=== PATIENT | female | born 1975 | race Caucasian/White ===

== ENCOUNTER 2020-10-14 03:55 | Inpatient (IN) | payer OTHER ==
[2020-10-14] MEDS ORDERED: ZIPRASIDONE MESYLATE 20 MG VIAL IM PRN (07:58)
[2020-10-14] MEDS ORDERED: cloNIDine 0.1 MG TAB PO PRN ×2 (22:37→22:50)
[2020-10-14] MEDS: METOPROLOL SUCCINATE XL 100 MG TAB PO SCH (22:58)
[2020-10-14] MEDS: NIFEdipine XL 90 MG TAB PO SCH (22:58)
[2020-10-14] MEDS: traZODone 50 MG TAB PO SCH (23:00)
--- NOTE | 2020-10-15 09:19 | History and Physical Report ---
GP History & Physical - History of Present Illness Date of admission: 10/14/20 Date of Examination: 10/15/20 Reason for Admission: Danger to others, Impaired reality testing, Failure of Outpatient Treatment History of Present Illness: Per Admission Note: pt arrived on the unit at approximately 2200 via stretcher accompanied by two EMS staff. pt is alert and orientedx4, calm and cooperative, appearance is unkempt, organized thought process, answers question appropriately, she maintained eye contact, pt reported that she had fentanyl patch which she believed triggered the abnormal behavior. pt reported she remembered walking out the house naked, but threatening her family, she could not remember. pt reported having anxiety and depression. pt denies si/hi, denies a/v/h. pt reported she had left kidney surgery(partial nephrectomy) 2 to 3 weeks ago in [place]. she also reported she has a dysfunctional gallbladder; she is scheduled for cholecystectomy in the next few weeks. pt has hx of biliary dyskinesia, chronic pain, depression with anxiety, HTN, Myocardial infarction, panic attack, renal cell carcinoma of left kidney. pt has bruises and scratches to bilateral arms, left knee abrasion, surgical scar on abdominal area. pt signs all admission paper including 1012. blood pressure elevated at 179/119 pulse 63 on left arm, 175/122, pulse 65 on right arm; order received from court monitor hospitalist DR bhatt, toprol xl 200mg po, procardial xl 90mg po and clonidine 0.1 mg po given with good affect. recheck was 146/93, pulse 66, pt denies pain. snack and fluid offered, pt orients to unit and unit guideline explained, no belonging brought in by; no distress noted, will continue to monitor for safety. Veronica Osullivan is a 45y/o female who states [facility] because she was "out of this world" The patient says she was on a fentanyl patch for cancer in her kidney and it had her out of reality. She says she was homicidal and making threats toward her family. She says I was delusional and running around naked. The patient says she has a history of depression and anxiety, and states she takes prozac and klonopin. She denies illicit drug use outside of THC, but says she's tried other drugs years ago. The patient denies hallucinations, but states she was having delusions so bad. "My mind was not right," she states. PAST PSYCHIATRIC HISTORY: Diagnoses: depression and anxiety Suicide attempts or Self-harm behavior: denies Prior psychiatric hospitalizations: yes Substance Abuse history: yes Previous psychiatric medications tried: prozac, klonopin Outpatient treatment: yes PAST MEDICAL HISTORY: HTN, CA, partial nephrectomy Family Psychiatric History: None reported or documented SOCIAL HISTORY Marital Status: common law Living Arrangements: with significant other of 21yrs Employment Status: unemployed, disabled Access to guns/weapons: denies Education: History of Abuse: denies Legal History: denies REVIEW OF SYSTEMS Constitutional: Negative for weight loss ENT: Negative for stridor Respiratory: Negative for cough or hemoptysis All other systems reviewed and are negative MENTAL STATUS EXAMINATION General Appearance and Behavior: Age appropriate, good hygiene, wearing appropriate clothes, calm and cooperative polite with questioning. Cooperation: engaged Psychomotor Behavior: Psychomotor normal Mood: "I'm okay" Affect and affective range: congruent with stated mood Thought Process: goal directed Thought Content: delusions Speech: Normal volume, Regular rate and rhythm, Suicidal Ideation: Denies Homicidal Ideation: Denies Hallucinations: Denies Delusions: None elicited Impulse Control: Unimpaired Insight and Judgment: Limited Memory: Normal Attention: attentive Orientation: a/o Diagnoses: Acute Psychosis Treatment Plan Patient admitted for inpatient psychiatric evaluation, medication adjustment and close monitoring The patient's behavior, mood, sleep and appetite will be closely monitored. Patient enrolled in individual and group therapeutic sessions and encouraged to attend. Patient provided with a safe and structured environment. Patient's physical health needs will be addressed by the Hospitalist. Hospitalist Consulted Labs including CBC, CMP, Lipid profile and Hemoglobin A1C levels ordered for baseline reference Social Assessment will be completed and the Route Specialist will work with patient and family to ensure a suitable and safe disposition Medication adjustment will be made as clinically indicated Start home medications Nicotine patch Usual Wellness Baptism/Preservation: - Start Trazodone 50 mg po QHS & 50 mg po QHS PRN between 10 PM & 2 AM for insomnia - Start Melatonin 5 mg po QHS to promote circadian rhythm The patient agreed on the treatment plan, understood the risk, benefit, a lternative treatment, potential consequence of no treatment, and gave informed consent. Initial Certification I certify that the inpatient psychiatric services are required for treatment that could reasonably be expected to improve the patient's condition. Estimated days: 3 Post hospital care: primary care provider, psychiatric provider Legal Status: Voluntary Reaction to Hospitalization: Accepting Medications and Allergies Allergies Allergy/AdvReac Type Severity Reaction Status Date / Time tramadol Allergy Unknown Verified 10/14/20 07:44 Home Medications Medication Instructions Recorded Confirmed Last Taken Type FLUoxetine HCL [Prozac] 20 mg PO DAILY 10/15/20 10/15/20 Unknown History Metoprolol Xl [Metoprolol 200 mg PO DAILY 10/15/20 10/15/20 Unknown History SUCCINATE ER TAB] Morphine [Morphine TAB] 15 mg PO Q4HR PRN 10/15/20 10/15/20 Unknown History NIFEdipine XL [Procardia Xl] 90 mg PO QDAY 10/15/20 10/15/20 Unknown History Promethazine [Phenergan] 25 mg PO Q6HR PRN 10/15/20 10/15/20 Unknown History clonazePAM [KlonoPIN] 0.5 mg PO BID PRN 10/15/20 10/15/20 Unknown History hydroCHLOROthiazide [Hctz] 12.5 mg PO QDAY 10/15/20 10/15/20 Unknown History lisinopriL [Lisinopril] 20 mg PO DAILY 10/15/20 10/15/20 Unknown History Active Meds: Active Medications Clonidine HCl (Clonidine 0.1 Mg Tab) 0.1 mg PO Q8H PRN PRN Reason: SBP > 170 Last Admin: 10/14/20 23:00 Dose: 0.1 mg Documented by: Hydrochlorothiazide (Hydrochlorothiazide 12.5 Mg Cap) 12.5 mg PO QDAY [facility] Lisinopril (Lisinopril 20 Mg Tab) 20 mg PO QDAY [facility] Metoprolol Succinate (Metoprolol Succinate Xl 100 Mg Tab) 200 mg PO QDAY [facility] Last Admin: 10/14/20 22:58 Dose: 200 mg Documented by: Nifedipine (Nifedipine Xl 90 Mg Tab) 90 mg PO QDAY [facility] Last Admin: 10/14/20 22:58 Dose: 90 mg Documented by: Trazodone HCl (Trazodone 50 Mg Tab) 50 mg PO QHS [facility] Last Admin: 10/14/20 23:00 Dose: 50 mg Documented by: Ziprasidone (Ziprasidone Mesylate 20 Mg Vial) 10 mg IM Q8H PRN PRN Reason: Agitation Results - Results Labs/Vitals: Laboratory Last Values POC Glucose 99 mg/dL (70-105) 10/14/20 22:13 Last Vital Signs Temp 98.7 F 10/15/20 07:54 Pulse 61 10/15/20 07:54 Resp 18 10/15/20 07:54 BP 116/79 10/15/20 07:54 Pulse Ox 99 10/15/20 07:54 Physical Examination - Constitutional Vitals: Vital Signs Temp Pulse Resp BP Pulse Ox 98.7 F 61 18 116/79 99 10/15/20 07:54 10/15/20 07:54 10/15/20 07:54 10/15/20 07:54 10/15/20 07:54 Temperature -Last 24 Hours Temperature 98.7 F Temperature 98.1 F Temperature 99.0 F Mental Status Exam - Vital signs Last Vital Signs Temp 98.7 F 10/15/20 07:54 Pulse 61 10/15/20 07:54 Resp 18 10/15/20 07:54 BP 116/79 10/15/20 07:54 Pulse Ox 99 10/15/20 07:54 Physician Certification - Certification Statement Physician Certification Statement: This is an acknowledgement statement that VERONICA OSULLIVAN is a 45 year old F who requires inpatient psychiatric admission for treatment which could reasonably be expected to improve the patient's condition for Estimated period of time patient will need to remain in the hospital: [ ] Plan for post-hospital care: [ ]
[2020-10-15] MEDS ORDERED: MELATONIN 5 MG TAB PO PRN (09:29)
[2020-10-15] MEDS ORDERED: clonazePAM 0.5 MG TAB PO PRN (09:29)
[2020-10-15] MEDS ORDERED: hydroCHLOROthiazide 12.5 MG CAP PO SCH (10:00)
[2020-10-15] MEDS ORDERED: LISINOPRIL 20 MG TAB PO SCH (10:00)
[2020-10-15] MEDS: NICOTINE 21 MG/24 HR PATCH TD SCH (10:37)
[2020-10-15] MEDS: FLUoxetine 20 MG CAP PO SCH (10:37)
[2020-10-15] MEDS: METOPROLOL SUCCINATE XL 100 MG TAB PO SCH ×2 (10:45→21:17)
[2020-10-15] MEDS: NIFEdipine XL 90 MG TAB PO SCH (10:49)
--- NOTE | 2020-10-15 12:12 | History and Physical Report ---
History of Present Illness Date of examination: 10/15/20 Date of admission: 10/14/20 21:43 Chief complaint: Behavioral disturbances History of present illness: 45-year-old female with past medical history of bipolar disorder, schizophrenia, hypertension, renal cell carcinoma of the left kidney, status post left nephrectomy, biliary dyskinesia who presents with variable disturbances. Patient went to emergency department due to right upper quadrant pain. Patient is supposed to have a robotic cholecystectomy on October 25, 2020, however she started to have pain. She took a relatives fentanyl patches and placed them over her right upper quadrant, after which she started to have variable disturbances and agitation. Family felt threatened, she did not have any suicidal ideation or homicidal ideation. Patient was evaluated at outside ED, HIDA scan did show normal hepatobiliary exam with abnormal ejection fraction. Due to her agitation, she was given Geodon and Ativan. Transfer to [facility] for continued evaluation. In less than 24 hours, patient is not agitated after the fentanyl patch has been removed. Patient denies any fevers or chills or abdominal pain, eating lunch without any difficulty. Hospital medicine was consulted for medical management. Past History Past Medical History: other (Bipolar disorder, schizophrenia, hypertension, biliary dyskinesia, history of left renal cell carcinoma) Past Surgical History: Other (Status post left nephrectomy) Social history: other (History of amphetamine use) Family history: no significant family history Medications and Allergies Allergies Allergy/AdvReac Type Severity Reaction Status Date / Time tramadol Allergy Unknown Verified 10/14/20 07:44 Home Medications Medication Instructions Recorded Confirmed Last Taken Type FLUoxetine HCL [Prozac] 20 mg PO DAILY 10/15/20 10/15/20 Unknown History Metoprolol Xl [Metoprolol 200 mg PO DAILY 10/15/20 10/15/20 Unknown History SUCCINATE ER TAB] Morphine [Morphine TAB] 15 mg PO Q4HR PRN 10/15/20 10/15/20 Unknown History NIFEdipine XL [Procardia Xl] 90 mg PO QDAY 10/15/20 10/15/20 Unknown History Promethazine [Phenergan] 25 mg PO Q6HR PRN 10/15/20 10/15/20 Unknown History clonazePAM [KlonoPIN] 0.5 mg PO BID PRN 10/15/20 10/15/20 Unknown History hydroCHLOROthiazide [Hctz] 12.5 mg PO QDAY 10/15/20 10/15/20 Unknown History lisinopriL [Lisinopril] 20 mg PO DAILY 10/15/20 10/15/20 Unknown History Active Meds: Active Medications Clonazepam (Clonazepam 0.5 Mg Tab) 0.5 mg PO BID PRN PRN Reason: Anxiety Clonidine HCl (Clonidine 0.1 Mg Tab) 0.1 mg PO Q8H PRN PRN Reason: SBP > 170 Last Admin: 10/14/20 23:00 Dose: 0.1 mg Documented by: Fluoxetine HCl (Fluoxetine 20 Mg Cap) 20 mg PO DAILY [facility] Last Admin: 10/15/20 10:37 Dose: 20 mg Documented by: Hydrochlorothiazide (Hydrochlorothiazide 12.5 Mg Cap) 12.5 mg PO QDAY [facility] Last Admin: 10/15/20 10:49 Dose: 12.5 mg Documented by: Lisinopril (Lisinopril 20 Mg Tab) 20 mg PO QDAY [facility] Last Admin: 10/15/20 10:49 Dose: Not Given Documented by: Melatonin (Melatonin 5 Mg Tab) 5 mg PO QHS PRN PRN Reason: Sleep Metoprolol Succinate (Metoprolol Succinate Xl 100 Mg Tab) 200 mg PO QDAY ON [facility] Last Admin: 10/15/20 10:45 Dose: Not Given Documented by: Nicotine (Nicotine 21 Mg/24 Hr Patch) 21 mg TD QDAY [facility] Last Admin: 10/15/20 10:37 Dose: 21 mg Documented by: Nifedipine (Nifedipine Xl 90 Mg Tab) 90 mg PO QDAY [facility] Last Admin: 10/15/20 10:49 Dose: 90 mg Documented by: Trazodone HCl (Trazodone 50 Mg Tab) 50 mg PO QHS ON [facility] Last Admin: 10/14/20 23:00 Dose: 50 mg Documented by: Ziprasidone (Ziprasidone Mesylate 20 Mg Vial) 10 mg IM Q8H PRN PRN Reason: Agitation Review of Systems All systems: negative Exam - Physical Exam Narrative exam: General appearance: no acute distress, well-nourished EENT: PERRL, EOM intact, hearing intact, clear oral mucosa Neck: Present: supple, normal ROM Respiratory: bilateral CTA, negative: rales, rhonchi, wheezing Cardiovascular: Regular rate/rhythm, Normal S1 & S2. No gallop, rub Extremities: no ischemia, No edema, normal temperature, normal color, Full ROM Abdominal: soft, no tenderness in right upper quadrant, non-distended, normal bowel sounds Integumentary: Present: clear, warm, dry no wounds, no erythema noted Psychiatric: appropriate mood/affect, intact judgment & insight Neurologic: CNII-XII intact, moves all extremities, no sensory or motor abnormalities - Constitutional Vitals: Temp Pulse Resp BP Pulse Ox 98.7 F 61 18 116/76 99 10/15/20 07:54 10/15/20 10:49 10/15/20 07:54 10/15/20 10:49 10/15/20 07:54 Results - Labs Labs: Laboratory Last Values POC Glucose 99 mg/dL (70-105) 10/14/20 22:13 [place]/IV: Voiding Method Toilet Assessment and Plan Assessment and plan: 45-year-old female who presents with behavioral disturbances Acute behavioral disturbances/psychosis Bipolar disorder Schizophrenia Fentanyl patch is removed Psychosis and behavioral disturbances seem to have been resolved Continue psych meds, fluoxetine and Klonopin per psychiatry Hypertension Continue metoprolol, nifedipine, spironolactone, lisinopril, hydrochlorothiazide. Patient takes all these medications at night Biliary dyskinesia Pain control Patient to have cholecystectomy on October 25, [address] Sheridan History of renal cell carcinoma with left nephrectomy Stable CODE STATUS: Full Disposition: Monitor patient's blood pressure, no emergent need for cholecystitis at this time, patient is able to eat regular low fat food. Pain control as needed. We will continue to follow. VTE prophylaxis?: Mechanical Plan of care discussed with patient/family: Yes
[2020-10-15] MEDS: traZODone 50 MG TAB PO SCH (21:17)
[2020-10-15] MEDS: LISINOPRIL 20 MG TAB PO SCH (21:18)
[2020-10-15] MEDS ORDERED: MORPHINE 15 MG TAB PO ONE (21:30)
[2020-10-16] MEDS: FLUoxetine 20 MG CAP PO SCH (10:04)
[2020-10-16] MEDS: NICOTINE 21 MG/24 HR PATCH TD SCH (10:04)
--- NOTE | 2020-10-16 10:08 | Progress Note ---
Subjective Date of service: 10/16/20 Principal diagnosis: Psychosis Subjective Comment: The patient was seen today, she says she's still not sleeping at all. She says she feels "okay." She denies SI/HI. She says she was having delusions but she feels as if it was the fentanyl patch. Informed the patient that I would adjust sleep meds and continue to monitor her for another 1 or 2 to make sure she is not further having the psychosis. She is in agreement. REVIEW OF SYSTEMS Constitutional: Negative for weight loss ENT: Negative for stridor Respiratory: Negative for cough or hemoptysis All other systems reviewed and are negative MENTAL STATUS EXAMINATION General Appearance and Behavior: Age appropriate, good hygiene, wearing appropriate clothes, calm and cooperative polite with questioning. Cooperation: engaged Psychomotor Behavior: Psychomotor normal Mood: "I'm okay" Affect and affective range: congruent with stated mood Thought Process: goal directed Thought Content: delusions Speech: Normal volume, Regular rate and rhythm Suicidal Ideation: Denies Homicidal Ideation: Denies Hallucinations: Denies Delusions: None elicited Impulse Control: Unimpaired Insight and Judgment: Limited Memory: Normal Attention: attentive Orientation: a/o Diagnoses: Acute Psychosis Treatment Plan Patient admitted for inpatient psychiatric evaluation, medication adjustment and close monitoring The patient's behavior, mood, sleep and appetite will be closely monitored. Patient enrolled in individual and group therapeutic sessions and encouraged to attend. Patient provided with a safe and structured environment. Patient's physical health needs will be addressed by the Hospitalist. Hospitalist Consulted Labs including CBC, CMP, Lipid profile and Hemoglobin A1C levels ordered for brianne esquivel Social Assessment will be completed and the Erection Shop Supervisor will work with patient and family to ensure a suitable and safe disposition Medication adjustment will be made as clinically indicated Increased Trazadone 100mg po daily Usual Wellness Confucianism/Preservation: - Start Trazodone 50 mg po QHS & 50 mg po QHS PRN between 10 PM & 2 AM for insomnia - Start Melatonin 5 mg po QHS to promote circadian rhythm The patient agreed on the treatment plan, understood the risk, benefit, alternative treatment, potential consequence of no treatment, and gave informed consent. Estimated days: 3 Post hospital care: primary care provider, psychiatric provider Medications and Allergies Allergies Allergy/AdvReac Type Severity Reaction Status Date / Time tramadol Allergy Unknown Verified 10/14/20 07:44 Home Medications Medication Instructions Recorded Confirmed Last Taken Type FLUoxetine HCL [Prozac] 20 mg PO DAILY 10/15/20 10/15/20 Unknown History Metoprolol Xl [Metoprolol 200 mg PO DAILY 10/15/20 10/15/20 Unknown History SUCCINATE ER TAB] Morphine [Morphine TAB] 15 mg PO Q4HR PRN 10/15/20 10/15/20 Unknown History NIFEdipine XL [Procardia Xl] 90 mg PO QDAY 10/15/20 10/15/20 Unknown History Promethazine [Phenergan] 25 mg PO Q6HR PRN 10/15/20 10/15/20 Unknown History clonazePAM [KlonoPIN] 0.5 mg PO BID PRN 10/15/20 10/15/20 Unknown History hydroCHLOROthiazide [Hctz] 12.5 mg PO QDAY 10/15/20 10/15/20 Unknown History lisinopriL [Lisinopril] 20 mg PO DAILY 10/15/20 10/15/20 Unknown History Active Meds: Active Medications Clonazepam (Clonazepam 0.5 Mg Tab) 0.5 mg PO BID PRN PRN Reason: Anxiety Clonidine HCl (Clonidine 0.1 Mg Tab) 0.1 mg PO Q8H PRN PRN Reason: SBP > 170 Last Admin: 10/14/20 23:00 Dose: 0.1 mg Documented by: Fluoxetine HCl (Fluoxetine 20 Mg Cap) 20 mg PO DAILY [facility] Last Admin: 10/15/20 10:37 Dose: 20 mg Documented by: Hydrochlorothiazide (Hydrochlorothiazide 12.5 Mg Cap) 12.5 mg PO QHS [facility] Lisinopril (Lisinopril 20 Mg Tab) 20 mg PO QHS [facility] Last Admin: 10/15/20 21:18 Dose: 20 mg Documented by: Melatonin (Melatonin 5 Mg Tab) 5 mg PO QHS PRN PRN Reason: Sleep Last Admin: 10/15/20 21:17 Dose: 5 mg Documented by: Metoprolol Succinate (Metoprolol Succinate Xl 100 Mg Tab) 200 mg PO QHS [facility] Last Admin: 10/15/20 21:17 Dose: 200 mg Documented by: Nicotine (Nicotine 21 Mg/24 Hr Patch) 21 mg TD QDAY [facility] Last Admin: 10/15/20 10:37 Dose: 21 mg Documented by: Nifedipine (Nifedipine Xl 90 Mg Tab) 90 mg PO QHS [facility] Trazodone HCl (Trazodone 50 Mg Tab) 50 mg PO QHS [facility] Last Admin: 10/15/20 21:17 Dose: 50 mg Documented by: Ziprasidone (Ziprasidone Mesylate 20 Mg Vial) 10 mg IM Q8H PRN PRN Reason: Agitation Results - Results Labs/Vitals: Laboratory Last Values POC Glucose 99 mg/dL (70-105) 10/14/20 22:13 Last Vital Signs Temp 98.8 F 10/15/20 22:00 Pulse 69 10/15/20 22:00 Resp 18 10/15/20 22:00 BP 119/79 10/16/20 00:25 Pulse Ox 97 10/15/20 22:00
[2020-10-16] MEDS ORDERED: MORPHINE 15 MG TAB PO PRN (14:00)
[2020-10-16 15:45] LABS: Basophils % (Auto) 0.3 % (0.0-1.8); Eosinophils # (Auto) 0.1 K/mm3 (0.0-0.4); Eosinophils % (Auto) 1.2 % (0.0-4.3); Hematocrit 38.4 % (30.3-42.9); Hemoglobin 13.2 gm/dl (10.1-14.3); Lymphocytes # (Auto) 1.8 K/mm3 (1.2-5.4); Lymphocytes % (Auto) 21.3 % (13.4-35.0); Mean Corpuscular HGB Conc 34 % (30-34); Mean Corpuscular Volume 91 fl (79-97); Monocytes # (Auto) 1.1 K/mm3 (0.0-0.8); Monocytes % (Auto) 13.3 % (0.0-7.3); Platelet Count 207 K/mm3 (140-440); Red Blood Count 4.22 M/mm3 (3.65-5.03); Red Cell Distribution Width 15.7 % (13.2-15.2)
[2020-10-16 16:07] LABS: Albumin 3.8 g/dL (3.9-5); Calcium 9.8 mg/dL (8.4-10.2); Chol/HDL Ratio 3.48 %
[2020-10-16] MEDS: METOPROLOL SUCCINATE XL 100 MG TAB PO SCH (21:39)
[2020-10-16] MEDS: LISINOPRIL 20 MG TAB PO SCH (21:40)
[2020-10-16 21:42] VITALS: BP 117/72
[2020-10-16] MEDS ORDERED: traZODone 100 MG TAB PO SCH (22:00)
[2020-10-16] MEDS ORDERED: NIFEdipine XL 90 MG TAB PO SCH (22:00)
[2020-10-16] MEDS ORDERED: hydroCHLOROthiazide 12.5 MG CAP PO SCH (22:00)
--- NOTE | 2020-10-17 09:04 | Discharge Summary ---
Providers - Providers Date of Admission: 10/14/20 21:43 Date of discharge: 10/17/20 Attending physician: BUNNY PANTOJA MD 10/14/20 07:51 Consult to Physician [CONS] Routine Comment: Consulting Provider: CARLOS OBANDO Physician Instructions: Please manage existing conditions Reason For Exam: H&P consultation for new admssion Primary care physician: TREE MARKER Hospitalization Reason for admission: psychosis Admitting Diagnosis: F29 - UNSP PSYCHOSIS NOT DUE TO A SUBSTANCE OR KNOWN PHYSIOL COND Condition: Stable Hospital course: The patient was provided inpatient psychiatric treatment with safe and supportive care, medication adjustment, adverse effect monitoring, medical e valuations, medical treatments, assessment and psycho-education. The patient's mood, cognition, behavior, moral support are improved and stabilized. St the time of discharge, the patient had no endangering behavior and no debilitating adverse effects. The patient agreed on potential consequences of no treatment and gave informed consent. Disposition: - TO HOME OR SELFCARE Time spent for discharge: 38 Allergies/Adverse Reactions: Allergies tramadol Allergy (Verified 10/14/20 07:44) Unknown Vital Signs: Last Vital Signs Temp 98.4 F 10/16/20 22:00 Pulse 69 10/16/20 21:40 Resp 16 10/16/20 22:00 BP 117/72 10/16/20 21:40 Pulse Ox 97 10/16/20 22:00 Last Lab: Laboratory Last Values WBC 8.3 K/mm3 (4.5-11.0) 10/16/20 15: RBC 4.22 M/mm3 (3.65-5.03) 10/16/20 15: Hgb 13.2 gm/dl (10.1-14.3) 10/16/20 15: Hct 38.4 % (30.3-42.9) 10/16/20 15: MCV 91 fl (79-97) 10/16/20 15: MCH 31 pg (28-32) 10/16/20 15: MCHC 34 % (30-34) 10/16/20 15:21 RDW 15.7 % (13.2-15.2) H 10/16/20 15:21 Plt Count 207 K/mm3 (140-440) 10/16/20 15: Lymph % (Auto) 21.3 % (13.4-35.0) 10/16/20 15:21 George % (Auto) 13.3 % (0.0-7.3) H 10/16/20 15:21 Eos % (Auto) 1.2 % (0.0-4.3) 10/16/20 15:21 Baso % (Auto) 0.3 % (0.0-1.8) 10/16/20 15:21 Lymph # (Auto) 1.8 K/mm3 (1.2-5.4) 10/16/20 15:21 George # (Auto) 1.1 K/mm3 (0.0-0.8) H 10/16/20 15:21 Eos # (Auto) 0.1 K/mm3 (0.0-0.4) 10/16/20 15:21 Baso # (Auto) 0.0 K/mm3 (0.0-0.1) 10/16/20 15:21 Seg Neutrophils % 63.9 % (40.0-70.0) 10/16/20 15:21 Seg Neutrophils # 5.3 K/mm3 (1.8-7.7) 10/16/20 15:21 Sodium 136 mmol/L (137-145) L 10/16/20 15:21 Potassium 3.7 mmol/L (3.6-5.0) 10/16/20 15:21 Chloride 99.1 mmol/L (98-107) 10/16/20 15:21 Carbon Dioxide 27 mmol/L (22-30) 10/16/20 15:21 Anion Gap 14 mmol/L 10/16/20 15:21 BUN 24 mg/dL (7-17) H 10/16/20 15:21 Creatinine 1.1 mg/dL (0.6-1.2) 10/16/20 15:21 Estimated GFR 54 ml/min 10/16/20 15:21 BUN/Creatinine Ratio 22 % 10/16/20 15:21 Glucose 80 mg/dL (65-100) 10/16/20 15:21 POC Glucose 99 mg/dL (70-105) 10/14/20 22:13 Hemoglobin A1c 5.3 % (4-6) 10/16/20 15:21 Calcium 9.8 mg/dL (8.4-10.2) 10/16/20 15:21 Total Bilirubin 0.20 mg/dL (0.1-1.2) 10/16/20 15:21 AST 18 units/L (5-40) 10/16/20 15:21 ALT 27 units/L (7-56) 10/16/20 15:21 Alkaline Phosphatase 106 units/L (35-129) 10/16/20 15:21 Total Protein 6.6 g/dL (6.3-8.2) 10/16/20 15:21 Albumin 3.8 g/dL (3.9-5) L 10/16/20 15:21 Albumin/Globulin Ratio 1.4 % 10/16/20 15:21 Triglycerides 210 mg/dL (2-149) H 10/16/20 15:21 Cholesterol 251 mg/dL (50-199) H 10/16/20 15:21 LDL Cholesterol Direct 158 mg/dL (50-130) H 10/16/20 15:21 HDL Cholesterol 72 mg/dL (40-59) H 10/16/20 15:21 Cholesterol/HDL Ratio 3.48 % 10/16/20 15:21 TSH 1.100 mlU/mL (0.270-4.200) 10/16/20 15:21 Core Measure Documentation - Palliative Care Palliative Care/ Comfort Measures: Not Applicable - Core Measures Any of the following diagnoses?: none Exam - Constitutional Vitals: Temp Pulse Resp BP Pulse Ox 98.4 F 69 16 117/72 97 10/16/20 22:00 10/16/20 21:40 10/16/20 22:00 10/16/20 21:40 10/16/20 22:00 General appearance: Present: no acute distress - EENT Eyes: Present: EOM intact ENT: hearing intact, clear oral mucosa - Neck Neck: Present: supple, normal ROM - Respiratory Respiratory effort: normal Plan Activity: advance as tolerated Weight Bearing Status: Weight Bear as Tolerated Care Plan Goals: Maintain good and stable mental health Plan of Treatment: The patient should be compliant with medications, not to use drugs, and not to drink alcohol. The patient understands that if suicidal ideas, homicidal ideas or any endangering feeling arise, the patient should seek assistance including, but not limited to crisis hotline, and emergency room. Assessment: Acute psychosis Follow up with: PRIMARY CARE, [Primary Care Provider] - 7 Days Prescriptions: traZODone [Desyrel] 100 mg PO QHS #30 tablet Melatonin [Melatonin 5MG TAB] 5 mg PO QHS PRN #30 tablet PRN Reason: Sleep Nicotine [Habitrol] 21 mg TD QDAY #30 patch FLUoxetine HCL [Prozac] 20 mg PO DAILY #30 cap
[2020-10-17] MEDS: NICOTINE 21 MG/24 HR PATCH TD SCH (09:26)
[2020-10-17] MEDS: FLUoxetine 20 MG CAP PO SCH (09:26)
== END 2020-10-17 11:00 | disposition home or self-care (01) | DRG 885 ==
LOC: UNDOADMIN 03:55 → 3A 03:55 → 5A 21:43
PROVIDERS: ADMIT Psychiatry & Neurology Psychiatry; ATTEND Psychiatry & Neurology Psychiatry
DX: F29 Unspecified psychosis not due to a substance or known physiological condition (principal); I10 Essential (primary) hypertension; F41.9 Anxiety disorder, unspecified; F31.9 Bipolar disorder, unspecified; F20.9 Schizophrenia, unspecified; K82.8 Other specified diseases of gallbladder; Z88.8 Allergy status to other drugs, medicaments and biological substances; Z90.49 Acquired absence of other specified parts of digestive tract; Z90.5 Acquired absence of kidney; Z79.899 Other long term (current) drug therapy; Z85.528 Personal history of other malignant neoplasm of kidney
CPT/HCPCS: 36415; 80053; 80061; 82962; 83036; 84443; 85025; G0378